=== PATIENT | male | born 1950 | race Caucasian/White ===

== ENCOUNTER 2023-12-25 11:48 | Outpatient (CLI) | payer MEDICARE ==
--- NOTE | 2023-12-25 13:04 | XRAY Report ---
PROCEDURE: Knee 3V BL INDICATIONS: BILATERAL KNEE PAIN TECHNIQUE: 4 views of the knee(s) were acquired. COMPARISON: None. FINDINGS: Bones: No fractures or dislocations. Mild to moderate symmetric medial compartment joint space loss and mild, symmetric lateral compartment space loss. Minimal spur formation. No suspicious bony lesio ns. Soft tissues: Small bilateral knee joint effusion. No suspicious soft tissue calcifications or soo s. Mild peripheral vascular calcification. IMPRESSION: Mild, medial compartment joint space loss bilaterally. Small bilateral knee joint effusions. Reviewed by: Kortney Butcher MD on 12/25/2023 1:02 PM PDT Approved by: Kortney Butcher MD on 12/25/2023 1:02 PM PDT Station ID: [id number]
== END 2023-12-25 11:49 | disposition home or self-care (01) ==
LOC: DI 11:48
PROVIDERS: ATTEND Internal Medicine
DX: M25.461 Effusion, right knee (principal); M25.462 Effusion, left knee; M25.561 Pain in right knee; M25.562 Pain in left knee